=== PATIENT | male | born 1995 | race Caucasian/White ===

== ENCOUNTER 2018-01-24 15:34 | Emergency (ER) | payer BC ==
[~2018-01-24] VITALS: Ht 175.3 cm; Wt 136.1 kg
[2018-01-24] MEDS ORDERED: NS(*) 0.9% 1000 ML BAG 1,000 ML IV ONE (15:36)
--- NOTE | 2018-01-24 15:51 | ER Report ---
History and Physical Time Seen By MD: 15:47 Hx. of Stated Complaint: patient having RU/MQ abd pain, denies radiation, states has been hurting for 2 days, no N/V/D (BAM BENNETT MD) HPI/ROS CHIEF COMPLAINT: Right upper quadrant pain HISTORY OF PRESENT ILLNESS: 22-year-old male morbidly obese comes emergency Department with a complaint of right upper quadrant pain sent here by the urgent care. Prior to presentation urgent care he had 2 large sawdust Doritos for [employer]man[employer] and started getting pain of his right upper quadrant. Patient denies nausea vomiting diarrhea fever chills no right lower left lower back or other discomfort pain is sharp stabbing localized colicky nature had this episodically before mostly when he eats fatty foods. Patient has no additional complaints at this time REVIEW OF SYSTEMS: Respiratory: No cough, no dyspnea. Cardiovascular: No chest pain, no palpitations. Gastrointestinal: No vomiting, has abdominal pain. Musculoskeletal: No back pain. Remainder of the 14 system rev: Yes (BAM BENNETT MD) Allergies: Coded Allergies: No Known Drug Allergies (Unverified , 01/24/18) Home Meds No Active Prescriptions or Reported Meds Reviewed Nurses Notes: Yes Old Medical Records Reviewed: Yes (BAM BENNETT MD) Hx Substance Use Disorder: No (BAM BENNETT MD) Constitutional Vital Sign - Last 24 Hours 01/24/18 01/24/18 01/24/18 01/24/18 15:34 15:38 15:40 16:00 Temp 99.1 Pulse ??? 122 Resp 14 B/P (MAP) 158/91 (113) 158/91 147/79 (101) Pulse Ox 97 01/24/18 01/24/18 01/24/18 01/24/18 16:04 16:19 16:30 16:34 Pulse 98 92 82 B/P (MAP) 107/55 (72) Pulse Ox 92 95 98 01/24/18 01/24/18 01/24/18 01/24/18 17:00 17:04 17:09 17:24 Pulse 92 101 105 B/P (MAP) 119/72 (88) Pulse Ox 93 93 93 3/7/18 3/7/18 3/7/18 3/7/18 17:30 17:39 17:54 18:09 Pulse ??? 97 93 B/P (MAP) 139/65 (89) Pulse Ox 91 91 01/24/18 01/24/18 01/24/18 01/24/18 18:24 18:30 18:39 18:45 Pulse 101 97 B/P (MAP) ???/??? (1665) 132/85 (101) Pulse Ox 95 94 (MARLO CALDWELL DO) Physical Exam General Appearance: The patient is alert, has no immediate need for airway protection and no current signs of toxicity. [ ] Eyes: Pupils equal and round no injection. Respiratory: Chest is non tender, lungs are clear to auscultation. Cardiac: regular rate and rhythm [ ] Gastrointestinal: Abdomen is soft nontender to right upper quadrant deep palpation bedside ultrasound demonstrates thickened gallbladder wall but otherwise difficult to appreciate due to morbid obesity will have a formal ultrasound done no rebound or guarding or masses Musculoskeletal: Neck: Neck is supple and non tender. Extremities have full range of motion and are non tender. Skin: No rashes or lesions. [ ] DIFFERENTIAL DIAGNOSIS: After history and physical exam differential diagnosis was considered for gallbladder cholelithiasis choledocholithiasis and rule out acute appendicitis if needed (BAM BENNETT MD) Medical Decision Making Data Points Result Diagram: 01/24/18 1547 01/24/18 1547 Laboratory Hematology Test 01/24/18 15:47 01/24/18 16:44 Red Blood Count 6.04 M/uL (4.00-5.60) Mean Corpuscular Volume 82.6 fL (80.0-96.0) Mean Corpuscular Hemoglobin 28.4 pg (26.0-33.0) Mean Corpuscular Hemoglobin Concent 34.4 g/dL (32.0-36.0) Red Cell Distribution Width 13.8 % (11.5-14.5) Mean Platelet Volume 9.5 fL (7.2-11.1) Neutrophils (%) (Auto) 68.4 % (39.4-72.5) Lymphocytes (%) (Auto) 22.3 % (17.6-49.6) Monocytes (%) (Auto) 6.7 % (4.1-12.4) Eosinophils (%) (Auto) 1.7 % (0.4-6.7) Basophils (%) (Auto) 0.9 % (0.3-1.4) Nucleated RBC Relative Count (auto) 0.0 /100WBC Neutrophils # (Auto) 7.8 K/uL (2.0-7.4) Lymphocytes # (Auto) 2.5 K/uL (1.3-3.6) Monocytes # (Auto) 0.8 K/uL (0.3-1.0) Eosinophils # (Auto) 0.2 K/uL (0.0-0.5) Basophils # (Auto) 0.1 K/uL (0.0-0.1) Nucleated RBC Absolute Count (auto) 0.00 K/uL Prothrombin Time 13.1 seconds (12.0-14.4) Prothromb Time International Ratio 0.99 Activated Partial Thromboplast Time 29 seconds (23-35) Sodium Level 143 mmol/L (137-145) Potassium Level 4.1 mmol/L (3.5-5.0) Chloride Level 101 mmol/L (98-107) Carbon Dioxide Level 25 mmol/L (22-30) Blood Urea Nitrogen 14 mg/dl (9-21) Creatinine 0.90 mg/dl (0.66-1.25) Glomerular Filtration Rate Calc > 60.0 Random Glucose 90 mg/dl (75-110) Calcium Level 9.8 mg/dl (8.4-10.2) Total Bilirubin 0.4 mg/dl (0.2-1.3) Aspartate Amino Transf (AST/SGOT) 47 U/L (0-35) Alanine Aminotransferase (ALT/SGPT) 98 U/L (0-56) Alkaline Phosphatase 93 U/L (0-126) Total Protein 8.9 gm/dl (6.3-8.2) Albumin 4.8 g/dl (3.5-5.0) Lipase 188 U/L (23-300) Urine Color Yellow Urine Clarity Clear Urine pH 6.0 pH (4.8-9.5) Urine Specific [place] 1.013 Urine Protein Negative mg/dL (NEGATIVE) Urine Glucose (UA) Negative mg/dL (NEGATIVE) Urine Ketones Negative mg/dL (NEGATIVE) Urine Blood Negative (NEGATIVE) Urine Nitrite Negative (NEGATIVE) Urine Bilirubin Negative (NEGATIVE) Urine Urobilinogen Negative mg/dL (0.2-1.9) Urine Leukocyte Esterase Negative (NEGATIVE) Urine RBC None /HPF (0-2/HPF) Urine WBC 3 /HPF (0-5/HPF) Urine Squamous Epithelial Cells Few /LPF (</=FEW) Urine Renal Epithelial Cells Few /LPF (NONE-FEW) Urine Bacteria Negative /HPF (NONE-FEW) Urine Mucus None /HPF (NONE-FEW) Chemistry Test 01/24/18 15:47 01/24/18 16:44 White Blood Count 11.4 k/uL (4.5-11.0) Red Blood Count 6.04 M/uL (4.00-5.60) Hemoglobin 17.2 g/dL (14.0-18.0) Hematocrit 49.9 % (42.0-52.0) Mean Corpuscular Volume 82.6 fL (80.0-96.0) Mean Corpuscular Hemoglobin 28.4 pg (26.0-33.0) Mean Corpuscular Hemoglobin Concent 34.4 g/dL (32.0-36.0) Red Cell Distribution Width 13.8 % (11.5-14.5) Platelet Count 387 K/uL (150-450) Mean Platelet Volume 9.5 fL (7.2-11.1) Neutrophils (%) (Auto) 68.4 % (39.4-72.5) Lymphocytes (%) (Auto) 22.3 % (17.6-49.6) Monocytes (%) (Auto) 6.7 % (4.1-12.4) Eosinophils (%) (Auto) 1.7 % (0.4-6.7) Basophils (%) (Auto) 0.9 % (0.3-1.4) Nucleated RBC Relative Count (auto) 0.0 /100WBC Neutrophils # (Auto) 7.8 K/uL (2.0-7.4) Lymphocytes # (Auto) 2.5 K/uL (1.3-3.6) Monocytes # (Auto) 0.8 K/uL (0.3-1.0) Eosinophils # (Auto) 0.2 K/uL (0.0-0.5) Basophils # (Auto) 0.1 K/uL (0.0-0.1) Nucleated RBC Absolute Count (auto) 0.00 K/uL Prothrombin Time 13.1 seconds (12.0-14.4) Prothromb Time International Ratio 0.99 Activated Partial Thromboplast Time 29 seconds (23-35) Glomerular Filtration Rate Calc > 60.0 Calcium Level 9.8 mg/dl (8.4-10.2) Total Bilirubin 0.4 mg/dl (0.2-1.3) Aspartate Amino Transf (AST/SGOT) 47 U/L (0-35) Alanine Aminotransferase (ALT/SGPT) 98 U/L (0-56) Alkaline Phosphatase 93 U/L (0-126) Total Protein 8.9 gm/dl (6.3-8.2) Albumin 4.8 g/dl (3.5-5.0) Lipase 188 U/L (23-300) Urine Color Yellow Urine Clarity Clear Urine pH 6.0 pH (4.8-9.5) Urine Specific [place] 1.013 Urine Protein Negative mg/dL (NEGATIVE) Urine Glucose (UA) Negative mg/dL (NEGATIVE) Urine Ketones Negative mg/dL (NEGATIVE) Urine Blood Negative (NEGATIVE) Urine Nitrite Negative (NEGATIVE) Urine Bilirubin Negative (NEGATIVE) Urine Urobilinogen Negative mg/dL (0.2-1.9) Urine Leukocyte Esterase Negative (NEGATIVE) Urine RBC None /HPF (0-2/HPF) Urine WBC 3 /HPF (0-5/HPF) Urine Squamous Epithelial Cells Few /LPF (</=FEW) Urine Renal Epithelial Cells Few /LPF (NONE-FEW) Urine Bacteria Negative /HPF (NONE-FEW) Urine Mucus None /HPF (NONE-FEW) Coagulation Test 01/24/18 15:47 Prothrombin Time 13.1 seconds Prothromb Time International Ratio 0.99 Activated Partial Thromboplast Time 29 seconds Urinalysis Test 01/24/18 16:44 Urine Color Yellow Urine Clarity Clear Urine pH 6.0 pH (4.8-9.5) Urine Specific [place] 1.013 Urine Protein Negative mg/dL (NEGATIVE) Urine Glucose (UA) Negative mg/dL (NEGATIVE) Urine Ketones Negative mg/dL (NEGATIVE) Urine Blood Negative (NEGATIVE) Urine Nitrite Negative (NEGATIVE) Urine Bilirubin Negative (NEGATIVE) Urine Urobilinogen Negative mg/dL (0.2-1.9) Urine Leukocyte Esterase Negative (NEGATIVE) Urine RBC None /HPF (0-2/HPF) Urine WBC 3 /HPF (0-5/HPF) Urine Squamous Epithelial Cells Few /LPF (</=FEW) Urine Renal Epithelial Cells Few /LPF (NONE-FEW) Urine Bacteria Negative /HPF (NONE-FEW) Urine Mucus None /HPF (NONE-FEW) (MARLO CALDWELL DO) EKG/Imaging Imaging Results: CT scan of the abdomen and pelvis with IV contrast was obtained. The results of the study are EXAMINATION: CT abdomen and pelvis with IV contrast HISTORY: Abdominal pain. TECHNIQUE: Axial CT images of the abdomen and pelvis were obtained with IV contrast, with coronal and sagittal 2D reconstructed images. One of the following dose optimization techniques was utilized in the performance of this exam: Automated exposure control; adjustment of the mA and/ or kV according to the patient's size; or use of an iterative reconstruction technique. Specific details can be referenced in the facility's radiology CT exam operational policy. Contrast: 80 mL of IV Isovue-370. COMPARISON: None. FINDINGS: The patient reportedly vomited after contrast administration, resulting in a significant scan delay. Scanning occurred approximately 7 1/2 minutes after contrast administration. Liver: Fatty infiltration of the liver. Normal hepatic size and morphology. Gallbladder and bile ducts: Negative. Spleen: Negative. Pancreas: Negative. Adrenal glands: Negative. Kidneys: Normal size and morphology of both kidneys. No hydronephrosis. There is contrast in the renal collecting systems related to the delayed scan time. This precludes evaluation for small nonobstructing calculi. Bowel and peritoneum: The small bowel and colon are normal in caliber, without evidence of obstruction or any focal inflammatory process. No bowel wall thickening. Unremarkable appendix in the right lower quadrant. There is a localized region of fat stranding in the upper right abdomen just deep to the abdominal wall, suspicious for a focal omental infarct. No adjacent bowel wall thickening. No free fluid or free intraperitoneal air. Pelvic structures: Negative. Lymph node assessment: Negative. Vessels: Negative. Musculoskeletal: Negative. Body wall: Negative. Lung bases: Negative. IMPRESSION: 1. Small region of localized fat stranding in the right upper abdomen just deep to the abdominal wall. CT appearance is suspicious for a focal omental infarct. 2. No other acute intra-abdominal findings. 3. Normal appendix. 4. Fatty infiltration of the liver. The study was read by the radiologist. I viewed the images myself on the PACS system. (MARLO CALDWELL DO) ED Course/Re-evaluation ED Course Care was assumed at shift change from Dr. Bennett with a diagnostic CT pending of the abdomen and pelvis to rule out occult pathology. Patient with right lower quadrant tenderness and right abdominal pain, worrisome for potential appendicitis. CT results show omental infarction, likely from trauma. 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 I suspect this is the mechanism of his infarction. He's advised to conservative treatment plan ibuprofen for pain relief. Advised to follow-up with the ER for any worsening. He is given Gen. surgery's number as well. Decision to Disposition Date: Jan 24, 2018 Decision to Disposition Time: 18:43 (MARLO CALDWELL DO) Depart Departure Latest Vital Signs Vital Signs Date Time Temp Pulse Resp B/P (MAP) Pulse Ox O2 Delivery O2 Flow Rate FiO2 01/24/18 18:45 132/85 (101) 01/24/18 18:39 97 94 01/24/18 15:40 99.1 14 (MARLO CALDWELL DO) Impression: Primary Impression: Omental infarction Condition: Improved Disposition: HOME OR SELF-CARE Referrals: YOVANNY HUERTAS MD, TOM MD New Scripts No Active Prescriptions or Reported Meds Patient Instructions: Abdominal Pain (ED) Additional Instructions: Take ibuprofen 200 mg 3 tablets 3 times a day with food Follow clear liquid diet for 24 hours and advance to Jovita diet for 24 hours, bananas, rice, applesauce, toast Avoid fatty food, greasy foods, dairy and vegetables Follow-up with the doctor listed on your paperwork if unimproved in 3-5 days or you can go to general surgeon, BAM Zapata MD Jan 24, 2018 15:51 MARLO CALDWELL DO Jan 24, 2018 18:45
[2018-01-24 15:56] LABS: PLATELET COUNT, AUTOMATED 387 K/uL (150-450)
[2018-01-24 16:02] LABS: INR 0.99
--- NOTE | 2018-01-24 17:10 | RADIOLOGY IMAGING REPORT ---
FACILITY: [facility] PATIENT NAME: Elijah Bhatt : 1995 MR: [id number] V: [id number] EXAM DATE: ORDERING PHYSICIAN: BAM BENNETT TECHNOLOGIST: Location: [facility] [place] Patient: Elijah Bhatt : 1995 Visit/Account:[id number] Date of Sevice: 01/24/2018 EXAMINATION: Focused right upper quadrant ultrasound COMPARISON: None HISTORY: Right upper quadrant abdominal pain. Findings: Standard right upper quadrant abdominal ultrasound is performed. Pancreas: Visualized portions of the pancreas are unremarkable. Liver and portal vein: Diffusely echogenic hepatic parenchyma. Portal vein is patent. Gallbladder and biliary system: No gallbladder stone or sludge. No wall thickening, pericholecystic f luid, or sonographic Marie's. The common bile duct is not dilated. Aorta and IVC: The visualized aorta and IVC are patent. Kidneys: The right kidney measures 12.4 x 3.7 x 5.5 cm . No renal mass, stone, or hydronephrosis. Ascites: None. IMPRESSION: 1. No sonographic findings of acute disease in the abdomen right upper quadrant. 2. Diffusely echogenic liver suggestive of hepatic steatosis. Report Dictated By: Federico Page MD at 01/24/2018 4:49 PM Report E-Signed By: Federico Page MD at 01/24/2018 4:51 PM WSN:[id number]
--- NOTE | 2018-01-24 17:12 | RADIOLOGY IMAGING REPORT ---
FACILITY: [facility] PATIENT NAME: Elijah Bhatt : 1995 MR: [id number] V: [id number] EXAM DATE: ORDERING PHYSICIAN: BAM BENNETT TECHNOLOGIST: Location: [facility] Patient: Elijah Bhatt : 1995 Visit/Account:[id number] Date of Sevice: 01/24/2018 2 VIEWS CHEST INDICATION: Right upper quadrant pain for 2 days. COMPARISON: None available FINDINGS: Cardiomediastinal silhouette and pulmonary vessels within normal limits. There is no focal infiltrate or lobar consolidation. There is no pneumothorax or pleural effusion. No nodule. Upper abdomen is unremarkable. No acute bony abnormality. IMPRESSION: 1. No acute cardiopulmonary process. Report Dictated By: Juan C Daniels at 01/24/2018 5:05 PM Report E-Signed By: Juan C Daniels at 01/24/2018 5:06 PM WSN:[id number]
[2018-01-24] MEDS ORDERED: IOPAMIDOL 76% 75 ML INFUS BTL 75 ML ONE (17:34)
[2018-01-24] MEDS ORDERED: ONDANSETRON 4 MG/2 ML VIAL ONE (17:39)
--- NOTE | 2018-01-24 18:32 | RADIOLOGY IMAGING REPORT ---
FACILITY: [facility] - [place] PATIENT NAME: Elijah Bhatt : 1995 MR: [id number] V: [id number] EXAM DATE: ORDERING PHYSICIAN: BAM BENNETT TECHNOLOGIST: Location: [facility] [place] Patient: Elijah Bhatt : 1995 Visit/Account:[id number] Date of Sevice: 01/24/2018 EXAMINATION: CT abdomen and pelvis with IV contrast HISTORY: Abdominal pain. TECHNIQUE: Axial CT images of the abdomen and pelvis were obtained with IV contrast, with coronal a nd sagittal 2D reconstructed images. One of the following dose optimization techniques was utilized in the performance of this exam: Autom ated exposure control; adjustment of the mA and/or kV according to the patient's size; or use of an i terative reconstruction technique. Specific details can be referenced in the facility's radiology C T exam operational policy. Contrast: 80 mL of IV Isovue-370. COMPARISON: None. FINDINGS: The patient reportedly vomited after contrast administration, resulting in a significant scan delay. Scanning occurred approximately 7 1/2 minutes after contrast administration. Liver: Fatty infiltration of the liver. Normal hepatic size and morphology. Gallbladder and bile ducts: Negative. Spleen: Negative. Pancreas: Negative. Adrenal glands: Negative. Kidneys: Normal size and morphology of both kidneys. No hydronephrosis. There is contrast in the milton al collecting systems related to the delayed scan time. This precludes evaluation for small nonobstru cting calculi. Bowel and peritoneum: The small bowel and colon are normal in caliber, without evidence of obstructi on or any focal inflammatory process. No bowel wall thickening. Unremarkable appendix in the right lo wer quadrant. There is a localized region of fat stranding in the upper right abdomen just deep to the abdominal wa ll, suspicious for a focal omental infarct. No adjacent bowel wall thickening. No free fluid or free intraperitoneal air. Pelvic structures: Negative. Lymph node assessment: Negative. Vessels: Negative. Musculoskeletal: Negative. Body wall: Negative. Lung bases: Negative. IMPRESSION: 1. Small region of localized fat stranding in the right upper abdomen just deep to the abdominal wall . CT appearance is suspicious for a focal omental infarct. 2. No other acute intra-abdominal findings. 3. Normal appendix. 4. Fatty infiltration of the liver. Report Dictated By: Ja Leal MD at 01/24/2018 6:21 PM Report E-Signed By: Ja Leal MD at 01/24/2018 6:29 PM WSN:[id number]
[2018-01-24 18:45] VITALS: BP 132/85
== END 2018-01-24 18:53 | disposition home or self-care (01) ==
LOC: ER 15:38
DX: K55.069 Acute infarction of intestine, part and extent unspecified (principal)
CPT/HCPCS: 71046; 74177; 76705; 81001; 83690; 85025; 85610; 85730; 96361; 96374; 99284; J2405; J7030; Q9967; 82040; 82247; 82310; 82374; 82435; 82565; 82947; 84075; 84132; 84155; 84295; 84450; 84460; 84520